=== PATIENT | male | born 1995 | race Two or more races ===

== ENCOUNTER 2018-12-19 22:05 | Emergency (ER) | payer OTHER ==
[2018-12-19 22:10] VITALS: BP 137/94; BMI 28.7
--- NOTE | 2018-12-19 22:11 | PDOC ---
History of Present Illness - General History Source: Patient, Family Exam Limitations: Language Barrier, Other (Brother was translating and giving history of events, due to patient not remembering what occurred. ) <Quentin Chacon - Last Filed: 12/19/18 23:07> <Jessica Garay - Last Filed: 12/21/18 23:29> - General Chief Complaint: Syncope/Near Syncope Stated Complaint: SYNCOPE - History of Present Illness Initial Comments: 12/19/18 22:27 The patient is a 23 year old male, with no significant past medical history of who presents to the emergency department with near syncope. The patient had a syncopal episode in the ED while watching a procedure done on a family member. The patient fell on his back and hit his head on the floor, prior to a family member picking him up. The patient regained consciousness after a few minutes, however, the patient was incontinent of urine. As per family the patient has had multiple previous vasovagal events in the past. The patient states his last meal was at 2pm but notes drinking juices throughout the afternoon. The patient does not remember falling or hitting his head. Allergies: NKDA Past surgical history: None reported Social history: current everyday smoker. No alcohol use. PCP:Dr. Fe Scott (Quentin Chacon) Past History <Quentin Chacon - Last Filed: 12/19/18 23:07> - Past Medical History COPD: No Other medical history: PREVIOUS SYNCOPAL EPISODES - Suicide/Smoking/Psychosocial Hx Smoking History: Current every day smoker Number of Cigarettes Smoked Daily: 10 Information on smoking cessation initiated: Yes <Jessica Garay - Last Filed: 12/21/18 23:29> - Past Medical History Allergies/Adverse Reactions: Allergies Allergy/AdvReac Type Severity Reaction Status Date / Time No Known Allergies Allergy Unverified 12/19/18 22:06 Home Medications: Ambulatory Orders NK [No Known Home Medication] 12/19/18 Review of Systems - Review of Systems Able to Perform ROS?: No (Patient was unconcious. ) <Quentin Chacon - Last Filed: 12/19/18 23:07> *Physical Exam <Quentin Chacon - Last Filed: 12/19/18 23:07> <Jessica Garay - Last Filed: 12/21/18 23:29> - Vital Signs Last Vital Signs Temp Pulse Resp BP Pulse Ox 98 F 79 20 137/94 100 12/19/18 22:10 12/19/18 22:10 12/19/18 22:10 12/19/18 22:10 12/19/18 22:10 - Physical Exam Comments: 12/19/18 22:28 GENERAL: Awake, alert, and fully oriented, in no acute distress HEAD: No signs of trauma EYES: PERRLA, EOMI, sclera anicteric, conjunctiva clear ENT: Auricles normal inspection, hearing grossly normal, nares patent, oropharynx clear without exudates. Moist mucosa NECK: Normal ROM, supple, no lymphadenopathy, JVD, or masses LUNGS: Breath sounds equal, clear to auscultation bilaterally. No wheezes, and no crackles HEART: Regular rate and rhythm, normal S1 and S2, no murmurs, rubs or gallops ABDOMEN: Soft, nontender, normoactive bowel sounds. No guarding, no rebound. No masses EXTREMITIES: Normal range of motion, no edema. No clubbing or cyanosis. No cords, erythema, or tenderness NEUROLOGICAL: Cranial nerves II through XII grossly intact. Normal speech, normal gait SKIN: Warm, Dry, normal turgor, no rashes or lesions noted. (Quentin Chacon) ED Treatment Course - LABORATORY CBC & Chemistry Diagram: 12/19/18 22:22 12/19/18 22:12 <Quentin Chacon - Last Filed: 12/19/18 23:07> - LABORATORY CBC & Chemistry Diagram: 12/19/18 22:22 12/19/18 22:12 <Jessica Garay - Last Filed: 12/21/18 23:29> - ADDITIONAL ORDERS Additional order review: 12/19/18 22:22 RBC 6.23 H MCV 81.1 MCHC 32.3 RDW 13.8 MPV 8.4 Neutrophils % 51.2 Lymphocytes % 37.8 Monocytes % 6.8 Eosinophils % 3.3 Basophils % 0.9 - RADIOLOGY Radiology Studies Ordered: Category Date Time Status HEAD CT WITHOUT CONTRAST [CT] Stat CT Scan 12/19/18 22:14 Completed - Medications Given in the ED: ED Medications Discontinued Medications Generic Name Dose Route Start Last Admin Trade Name Freq PRN Reason Stop Dose Admin Acetaminophen 650 mg 12/19/18 23:39 12/19/18 23:41 Tylenol - PO 12/19/18 23:40 650 mg ONCE ONE Administration Medical Decision Making <OswaldoQuentin - Last Filed: 12/19/18 23:07> <Jessica Gaary - Last Filed: 12/21/18 23:29> - Medical Decision Making Documentation has been prepared under my direction and personally reviewed by me in its entirety. I attest that this documented accurately reflects all work, treatment, procedures and medical decision making performed by me. As noted above, this 23-year-old man, otherwise healthy other than apparent vasovagal syncope episodes in the past, presents with history of loss of consciousness while watching a procedure of another family member here in the emergency room. Patient felt backwards onto the floor, hitting the back of his head. Patient regained consciousness within a minute; there was no post ictal period with patient becoming alert and oriented soon after regaining consciousness. He has no complaints. As noted above, the patient had not eaten much during the day prior to this evening. He also awakens very early in the morning (approximately 5 AM) for his job and was already very fatigued when episode occurred. Patient stated that in the past, he has fainted after seeing blood(which was present when family member had procedure done. ) Exam as noted. Noncontrast head CT performed: No evidence of intracranial acute pathology or skull fracture. CBC and chemistry profile sent: Results essentially normal except for slight elevation (11,400) of white blood cell count. Hematocrit also slightly elevated at 50% (patient is a smoker) Patient continued to feel comfortable except for slight headache. He was given Tylenol 650 mg orally. He was able to drink water without nausea or vomiting. Patient was discharged with instructions to rest, drink plenty of fluids, avoid strenuous physical or mental activity over the next 24 hours. He should take Tylenol only for pain for the next 1-2 days. He should return to the emergency room if he has severe headache/vomiting/excessive sleepiness. He should follow- up with his general doctor 12/22/18 (Jessica Garay) *DC/Admit/Observation/Transfer <Quentin Chacon - Last Filed: 12/19/18 23:07> <Jessica Garay - Last Filed: 12/21/18 23:29> Diagnosis at time of Disposition: Vasovagal syncope - Discharge Dispostion Disposition: HOME Condition at time of disposition: Stable - Referrals Referrals: Fe Scott MD [Primary Care Provider] - 3 days - Patient Instructions Printed Discharge Instructions: DI for Syncope in Adults (Fainting) Additional Instructions: rest drink plenty of fluids and eat regular meals tylenol as needed for headache avoid strenuous activity tomorrow return to ER if you have worsening headache or experience vomiting/excessive sleepiness followup with Dr Scott on SaturdayDecember 22 - Post Discharge Activity - Attestations Scribe Attestion: 12/19/18 22:29 Documentation prepared by Quentin Chacon, acting as emergency medical technician for Jessica Garay MD (Quentin Chacon)
[2018-12-19 22:12] VITALS: PULSE 79; TEMP 98
[2018-12-19 22:38] LABS: BASO % 0.9 % (0-2.0); EOS % 3.3 % (0-4.5); HEMATOCRIT 50.5 % (35.4-49); HEMOGLOBIN 16.3 GM/dl (11.7-16.9); LYMPH % 37.8 % (8-40); MCH 26.2 pg (25.7-33.7); MCHC 32.3 g/dl (32.0-35.9); MEAN CELL VOLUME 81.1 fl (80-96); MEAN PLT VOLUME 8.4 fl (7.5-11.1); MONO % 6.8 % (3.8-10.2); NEUT % 51.2 % (42.8-82.8); PLATELET COUNT 226 K/MM3 (134-434); RBC 6.23 M/mm3 (4.00-5.60); RDW 13.8 % (11.9-15.9); WHITE BLOOD COUNT 11.4 K/mm3 (4.0-10.8)
[2018-12-19 22:46] LABS: ALBUMIN 4.2 g/dl (3.4-5.0); ALK PHOS 52 U/L (45-117); ANION GAP 8 MMOL/L (8-16); BILIRUBIN,TOTAL 0.6 mg/dl (0.2-1); BLOOD UREA NITROGEN 16 mg/dl (7-18); CALCIUM 8.9 mg/dl (8.5-10); CHLORIDE 103 mmol/L (98-107); CO2 24 mmol/L (21-32); CREATININE 0.9 mg/dl (0.55-1.3); GLUCOSE,RANDOM 103 mg/dl (74-106); POTASSIUM 4.7 mmol/L (3.5-5.1); SGOT/AST 29 U/L (15-37); SGPT/ALT 38 U/L (13-61); SODIUM 135 mmol/L (136-145); TOT PROT 7.3 g/dl (6.4-8.2)
[2018-12-19] MEDS ORDERED: ACETAMINOPHEN 325 MG TABLET (FP) PO ONE (23:39)
[2018-12-19] MEDS ORDERED: ACETAMINOPHEN 325 MG TABLET (FP) ONE (23:40)
--- NOTE | 2018-12-22 11:26 | EKG ---
Test Reason : Blood Pressure : / mmHG Vent. Rate : 071 BPM Atrial Rate : 071 BPM P-R Int : 174 ms QRS Dur : 102 ms QT Int : 374 ms P-R-T Axes : 049 050 013 degrees QTc Int : 406 ms NORMAL SINUS RHYTHM NONSPECIFIC ST AND T WAVE ABNORMALITY ABNORMAL ECG NO PREVIOUS ECGS AVAILABLE Confirmed by VENECIA HAWKINS MD ([id number]) on 12/22/2018 11:25:40 AM Referred By: MD MARY Confirmed By:VENECIA HAWKINS MD
== END 2018-12-19 23:42 | disposition home or self-care (01) ==
LOC: FER 22:05
DX: R55 Syncope and collapse (principal)
CPT/HCPCS: 36415; 70450-TC; 80053; 85025; 93005; 99282-25

== ENCOUNTER 2019-03-10 11:33 | Emergency (ER) | payer SELFPAY ==
[2019-03-10 11:45] VITALS: TEMP 97.9; BMI 28.7
--- NOTE | 2019-03-10 11:59 | PDOC ---
History of Present Illness - General Chief Complaint: Pain Stated Complaint: PAIN Time Seen by Provider: 03/10/19 11:56 History Source: Patient - History of Present Illness Timing/Duration: reports: getting worse Quality: reports: severe Abdominal Pain Onset Location: reports: RLQ Past History - Past Medical History Allergies/Adverse Reactions: Allergies Allergy/AdvReac Type Severity Reaction Status Date / Time No Known Allergies Allergy Unverified 12/19/18 22:06 Home Medications: Ambulatory Orders NK [No Known Home Medication] 12/19/18 COPD: No - Suicide/Smoking/Psychosocial Hx Smoking History: Never smoked Number of Cigarettes Smoked Daily: 10 Information on smoking cessation initiated: No 'Breaking Loose' booklet given: 12/19/18 Hx Alcohol Use: No Drug/Substance Use Hx: No Review of Systems - Review of Systems Constitutional: No: Chills, Fever ABD/GI: Yes: Nausea, Abdominal cramping. No: Diarrhea, Vomiting : No: Dysuria, Flank Pain, Hematuria *Physical Exam - Vital Signs Last Vital Signs Temp Pulse Resp BP Pulse Ox 97.9 F 70 16 144/76 99 03/10/19 11:42 03/10/19 11:42 03/10/19 11:42 03/10/19 11:42 03/10/19 11:42 - Physical Exam General Appearance: Yes: Appropriately Dressed. No: Apparent Distress HEENT: positive: Normal Voice Neck: positive: Supple Respiratory/Chest: negative: Respiratory Distress Gastrointestinal/Abdominal: positive: Normal Bowel Sounds, Tender (w/ guarding to RLQ), Soft. 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 States pain is steadily getting worse. + nausea, no voming, change in BM, dysuria, hematuria, f/c. No h/o similar pain. No h/o renal or gallstones See exam R/o appy vs renal colic, unlikely biliary -pain control -labs -CT 03/10/19 16:[address] read as no acute findings and non-specific mild lypmhadenopathy to upper abd. Findings d/w pt who was told to f/u with his PMD for further evaluation. Pain since resolved w/ toradol here *DC/Admit/Observation/Transfer Diagnosis at time of Disposition: Abdominal pain Qualifiers: Abdominal location: right lower quadrant Qualified Code(s): R10.31 - Right lower quadrant pain - Discharge Dispostion Disposition: HOME Condition at time of disposition: Improved - Referrals - Patient Instructions Printed Discharge Instructions: DI for Acute Abdomen Additional Instructions: The cause of your abdominal pain is unclear at this time as your labs and CT showed no obvious source. There is some mildly enlarged lymph nodes in your upper abdomen that is non-specific. to her upper abdomen of and you need to follow-up with your doctor to discuss this. - Post Discharge Activity
[2019-03-10] MEDS ORDERED: KETOROLAC TROMETHAMINE 30 MG/1 ML VIAL IVPUSH ONE (12:33)
[2019-03-10] MEDS ORDERED: KETOROLAC TROMETHAMINE 30 MG/1 ML VIAL ONE (12:34)
--- NOTE | 2019-03-10 12:56 | PDOC ---
*Physical Exam - Vital Signs Last Vital Signs Temp Pulse Resp BP Pulse Ox 97.9 F 70 16 144/76 99 03/10/19 11:42 03/10/19 11:42 03/10/19 11:42 03/10/19 11:42 03/10/19 11:42 ED Treatment Course - LABORATORY CBC & Chemistry Diagram: 03/10/19 12:48 03/10/19 12:48 Medical Decision Making - Medical Decision Making 03/10/19 12:55 Ms. 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 No alleviating factors +nausea, no vomiting No dysuria, hematuria Pt seen by Midlevel Provider under my direct supervision Ancillary studies reviewed CT negative for appendicitis Pt does have lymph nodes Pt given copies of CT report for follow up with in 1 week I agree with plan as outlined by Midlevel Provider 03/12/19 10:22 *DC/Admit/Observation/Transfer Diagnosis at time of Disposition: Abdominal pain - Discharge Dispostion Disposition: HOME Condition at time of disposition: Improved - Referrals - Patient Instructions Printed Discharge Instructions: DI for Acute Abdomen Additional Instructions: The cause of your abdominal pain is unclear at this time as your labs and CT showed no obvious source. There is some mildly enlarged lymph nodes in your upper abdomen that is non-specific. to her upper abdomen of and you need to follow-up with your doctor to discuss this. - Post Discharge Activity
[2019-03-10 13:08] LABS: URINE APPEARANCE CLEAR; URINE BILIRUBIN NEGATIVE (NEGATIVE); URINE COLOR YELLOW; URINE GLUCOSE (UA) NEGATIVE (NEGATIVE); URINE KETONE NEGATIVE (NEGATIVE); URINE LEUK ESTERASE NEGATIVE (NEGATIVE); URINE NITRITE NEGATIVE (NEGATIVE); URINE PROTEIN NEGATIVE (NEGATIVE)
[2019-03-10 13:09] LABS: BASO % 0.7 % (0-2.0); EOS % 4.2 % (0-4.5); HEMATOCRIT 49.5 % (35.4-49); HEMOGLOBIN 16.5 GM/dL (11.7-16.9); LYMPH % 32.1 % (8-40); MCH 26.7 pg (25.7-33.7); MCHC 33.3 g/dl (32.0-35.9); MEAN CELL VOLUME 80.4 fl (80-96); MEAN PLT VOLUME 7.6 fl (7.5-11.1); MONO % 10.3 % (3.8-10.2); NEUT % 52.7 % (42.8-82.8); PLATELET COUNT 232 K/MM3 (134-434); RBC 6.16 M/mm3 (4.00-5.60); RDW 14.6 % (11.9-15.9); WHITE BLOOD COUNT 7.4 K/mm3 (4.0-10.0)
[2019-03-10 14:28] LABS: BILIRUBIN,TOTAL 0.3 mg/dL (0.2-1); BLOOD UREA NITROGEN 12.7 mg/dL (7-18); CALCIUM 9.1 mg/dL (8.5-10.1); CREATININE 0.9 mg/dL (0.55-1.3); POTASSIUM 4.8 mmol/L (3.5-5.1); TOT PROT 7.5 g/dl (6.4-8.2)
[2019-03-10 16:34] VITALS: BP 135/79; PULSE 69
== END 2019-03-10 16:35 | disposition home or self-care (01) ==
LOC: JER 11:33
PROC: 3E0333Z Introduction of Anti-inflammatory into Peripheral Vein, Percutaneous Approach (ICD-10-PCS; principal; 2019-03-10)
DX: R10.31 Right lower quadrant pain (principal); R59.0 Localized enlarged lymph nodes
CPT/HCPCS: 36415; 74177-TC; 80053; 81003; 83690; 85025; 99283-25